=== PATIENT | male | born 1940 | race Caucasian/White ===

== ENCOUNTER 2019-01-11 09:05 | Day surgery (SDC) | payer OTHER ==
[~2019-01-11] VITALS: Ht 177.8 cm; Wt 93.7 kg
[~2019-01-11 09:05] MED LIST: ASPI81EC; CEPH500 PO; FISH1000; HYDACE5 PO; LEVSOD100; METF500; MULVITMIND; PRAV20
[2019-01-11] MEDS ORDERED: OMEP20ER (09:33)
--- NOTE | 2019-01-11 10:21 | NUR ---
01/11/19 1021 Oneida De La Cruz PT. VERBALIZES HAVING JUAN JOSE. PT. DOESN'T USE A CPAP, PT. USES AN ORAL DEVICE. PT. ALSO VERBALIZES NOT HAVING DIABETES. PT. DOESN'T TAKE ANY MEDICATIONS FOR DIABETES ANYMORE.
== END 2019-01-11 11:14 | disposition home or self-care (01) ==
LOC: ORSCSDS 09:05
DX: K21.9 Gastro-esophageal reflux disease without esophagitis (principal); K31.7 Polyp of stomach and duodenum; K22.2 Esophageal obstruction; R13.10 Dysphagia, unspecified; E11.9 Type 2 diabetes mellitus without complications; E78.00 Pure hypercholesterolemia, unspecified; G47.33 Obstructive sleep apnea (adult) (pediatric); E03.9 Hypothyroidism, unspecified; Z79.899 Other long term (current) drug therapy
CPT/HCPCS: 88305; 88312; 88342; J2250; J2704; J7120

== ENCOUNTER → 2020-05-02 | Outpatient (CLI) | payer OTHER ==
[~2020-05-02] MED LIST changes: +OMEP20ER
== END | disposition home or self-care (01) ==
LOC: PLD 12:28 → LAB SHORT 12:28
DX: D48.5 Neoplasm of uncertain behavior of skin (principal)
CPT/HCPCS: 88305